=== PATIENT | male | born 1950 | race African-American/Black ===

== ENCOUNTER 2016-02-22 09:02 | Outpatient (RCR) | payer MEDICARE, MEDICAID | END 2016-03-15 | disposition home or self-care (01) | LOC: WCC 09:02 | DX: L97.823 Non-pressure chronic ulcer of other part of left lower leg with necrosis of muscle (principal); L97.822 Non-pressure chronic ulcer of other part of left lower leg with fat layer exposed; L97.322 Non-pressure chronic ulcer of left ankle with fat layer exposed; I10 Essential (primary) hypertension; I87.2 Venous insufficiency (chronic) (peripheral); I25.10 Atherosclerotic heart disease of native coronary artery without angina pectoris | CPT/HCPCS: 11042; 15271; 29580; Q4133 ==

== ENCOUNTER 2016-03-21 09:00 | Outpatient (RCR) | payer MEDICARE, MEDICAID | END 2016-04-12 | disposition home or self-care (01) | LOC: WCC 09:00 | DX: L97.823 Non-pressure chronic ulcer of other part of left lower leg with necrosis of muscle (principal); L97.822 Non-pressure chronic ulcer of other part of left lower leg with fat layer exposed; L97.322 Non-pressure chronic ulcer of left ankle with fat layer exposed; I10 Essential (primary) hypertension; Z95.0 Presence of cardiac pacemaker; I51.9 Heart disease, unspecified; Z79.82 Long term (current) use of aspirin | CPT/HCPCS: 15271; 29580; Q4133 ==

== ENCOUNTER 2016-04-18 09:30 | Outpatient (RCR) | payer MEDICARE, MEDICAID | END 2016-05-13 | disposition home or self-care (01) | LOC: WCC 09:30 | DX: L97.823 Non-pressure chronic ulcer of other part of left lower leg with necrosis of muscle (principal); L97.822 Non-pressure chronic ulcer of other part of left lower leg with fat layer exposed; L97.322 Non-pressure chronic ulcer of left ankle with fat layer exposed; I10 Essential (primary) hypertension; I87.2 Venous insufficiency (chronic) (peripheral); I51.9 Heart disease, unspecified; Z79.1 Long term (current) use of non-steroidal anti-inflammatories (NSAID) | CPT/HCPCS: 11042; 11043; 11046; 15271; 29580; C5271; Q4124; Q4132 ==

== ENCOUNTER 2016-05-18 15:00 | Outpatient (RCR) | payer MEDICARE, MEDICAID | END 2016-06-12 | disposition home or self-care (01) | LOC: WCC 15:00 | DX: L97.823 Non-pressure chronic ulcer of other part of left lower leg with necrosis of muscle (principal); L97.822 Non-pressure chronic ulcer of other part of left lower leg with fat layer exposed; L97.322 Non-pressure chronic ulcer of left ankle with fat layer exposed; I10 Essential (primary) hypertension; I87.2 Venous insufficiency (chronic) (peripheral); I51.9 Heart disease, unspecified | CPT/HCPCS: 11042; 11043; 11046; 29580; 87070; 87181; 87205; C5271; C5272; Q4124 ==

== ENCOUNTER 2016-06-13 10:08 | Outpatient (RCR) | payer MEDICARE, MEDICAID ==
[~2016-06-13] VITALS: Ht 193 cm; Wt 106.6 kg
[2016-06-24] MEDS ORDERED: Lidocaine HCl 2% Jelly 5ml Tube TOPIC ONE (16:00)
== END 2016-07-13 | disposition home or self-care (01) ==
LOC: WCC 10:08
DX: L97.823 Non-pressure chronic ulcer of other part of left lower leg with necrosis of muscle (principal); L97.822 Non-pressure chronic ulcer of other part of left lower leg with fat layer exposed; L97.322 Non-pressure chronic ulcer of left ankle with fat layer exposed; I10 Essential (primary) hypertension; I51.9 Heart disease, unspecified; Z95.0 Presence of cardiac pacemaker
CPT/HCPCS: 11042; 11043; 11045; 11046; 15271; 15272; 29580; Q4106; Q4101

== ENCOUNTER 2016-07-18 09:00 | Outpatient (RCR) | payer MEDICARE, MEDICAID ==
[~2016-07-18] VITALS: Ht 193 cm; Wt 106.6 kg
[2016-07-20] MEDS ORDERED: Lidocaine HCl 2% Jelly 5ml Tube TOPIC ONE ×2 (12:35)
== END 2016-08-12 | disposition home or self-care (01) ==
LOC: WCC 09:00
DX: L97.823 Non-pressure chronic ulcer of other part of left lower leg with necrosis of muscle (principal); L97.822 Non-pressure chronic ulcer of other part of left lower leg with fat layer exposed; L97.322 Non-pressure chronic ulcer of left ankle with fat layer exposed; I11.9 Hypertensive heart disease without heart failure; Z95.0 Presence of cardiac pacemaker
CPT/HCPCS: 11042; 11043; 11045; 11046; 29580

== ENCOUNTER → 2016-08-05 | Outpatient (CLI) | payer MEDICAID, MEDICARE ==
--- NOTE | 2016-08-05 16:44 | Diagnostic Imaging Report ---
Indication: COUGH Technique: 2 views of the chest Comparison: 06/12/2015 Findings: The heart is mildly enlarged. There is a left chest AICD, which has placed the previously present pacemaker. There is an unusually positioned coronary sinus lead, which is actually anterior to the right ventricle. The lungs and pleural space are clear. Aorta is tortuous. There are degenerative changes of the thoracic spine Impression: No acute process Cardiomegaly AICD, as described
== END | disposition home or self-care (01) ==
LOC: RAD 11:09
DX: R05 Cough (principal); I51.7 Cardiomegaly; Z95.810 Presence of automatic (implantable) cardiac defibrillator; Q25.46 Tortuous aortic arch
CPT/HCPCS: 71020

== ENCOUNTER 2016-08-31 14:21 | Outpatient (RCR) | payer MEDICARE, MEDICAID | END 2016-09-12 | disposition home or self-care (01) | LOC: WCC 14:21 | DX: L97.823 Non-pressure chronic ulcer of other part of left lower leg with necrosis of muscle (principal); L97.822 Non-pressure chronic ulcer of other part of left lower leg with fat layer exposed; L97.322 Non-pressure chronic ulcer of left ankle with fat layer exposed; I10 Essential (primary) hypertension; I51.9 Heart disease, unspecified | CPT/HCPCS: 11042; 11043; 11045; 11046; 29580 ==

== ENCOUNTER 2016-09-14 13:08 | Outpatient (RCR) | payer MEDICARE, MEDICAID | END 2016-10-13 | disposition home or self-care (01) | LOC: WCC 13:08 | DX: L97.823 Non-pressure chronic ulcer of other part of left lower leg with necrosis of muscle (principal); L97.822 Non-pressure chronic ulcer of other part of left lower leg with fat layer exposed; L97.322 Non-pressure chronic ulcer of left ankle with fat layer exposed; I11.9 Hypertensive heart disease without heart failure; Z79.1 Long term (current) use of non-steroidal anti-inflammatories (NSAID) | CPT/HCPCS: 11042; 11043; 11045; 15271; 29580; Q4106; Q4101 ==

== ENCOUNTER 2016-10-24 09:30 | Outpatient (RCR) | payer MEDICARE, MEDICAID | END 2016-11-12 | disposition home or self-care (01) | LOC: WCC 09:30 | DX: L97.823 Non-pressure chronic ulcer of other part of left lower leg with necrosis of muscle (principal); L97.822 Non-pressure chronic ulcer of other part of left lower leg with fat layer exposed; L97.322 Non-pressure chronic ulcer of left ankle with fat layer exposed; I11.9 Hypertensive heart disease without heart failure; Z79.1 Long term (current) use of non-steroidal anti-inflammatories (NSAID) | CPT/HCPCS: 11042; 11045; 15271; 29580; Q4106; Q4101 ==

== ENCOUNTER 2016-11-14 09:00 | Outpatient (RCR) | payer MEDICARE, OTHER ==
[~2016-11-14] VITALS: Ht 193 cm; Wt 106.6 kg
[2016-11-18] MEDS ORDERED: Lidocaine HCl 2% Jelly 5ml Tube TOPIC ONE (12:00)
== END 2016-12-13 | disposition home or self-care (01) ==
LOC: WCC 09:00
DX: L97.823 Non-pressure chronic ulcer of other part of left lower leg with necrosis of muscle (principal); L97.822 Non-pressure chronic ulcer of other part of left lower leg with fat layer exposed; L97.322 Non-pressure chronic ulcer of left ankle with fat layer exposed; I11.9 Hypertensive heart disease without heart failure
CPT/HCPCS: 15271; 29580; Q4106; Q4133; Q4101

== ENCOUNTER 2016-12-26 09:00 | Outpatient (RCR) | payer MEDICARE, OTHER | END 2017-01-12 | disposition home or self-care (01) | LOC: WCC 09:00 | DX: L97.823 Non-pressure chronic ulcer of other part of left lower leg with necrosis of muscle (principal); L97.822 Non-pressure chronic ulcer of other part of left lower leg with fat layer exposed; L97.322 Non-pressure chronic ulcer of left ankle with fat layer exposed; I11.9 Hypertensive heart disease without heart failure; Z95.0 Presence of cardiac pacemaker | CPT/HCPCS: 11042; 11043; 15271; 29580; Q4133 ==

== ENCOUNTER 2017-01-16 09:00 | Outpatient (RCR) | payer MEDICARE, OTHER ==
[~2017-01-16] VITALS: Ht 193 cm; Wt 106.6 kg
== END 2017-02-12 | disposition home or self-care (01) ==
LOC: WCC 09:00
DX: L97.823 Non-pressure chronic ulcer of other part of left lower leg with necrosis of muscle (principal); L97.822 Non-pressure chronic ulcer of other part of left lower leg with fat layer exposed; L97.322 Non-pressure chronic ulcer of left ankle with fat layer exposed; I11.9 Hypertensive heart disease without heart failure
CPT/HCPCS: 11042; 11043; 15271; 29580; Q4133

== ENCOUNTER 2017-02-20 09:07 | Outpatient (RCR) | payer MEDICARE, OTHER ==
[~2017-02-20] VITALS: Ht 193 cm; Wt 106.6 kg
[2017-02-28] MEDS ORDERED: Lidocaine 4% Top Soln 50ml TOPIC ONE (09:15)
== END 2017-03-15 | disposition home or self-care (01) ==
LOC: WCC 09:07
DX: L97.823 Non-pressure chronic ulcer of other part of left lower leg with necrosis of muscle (principal); L97.822 Non-pressure chronic ulcer of other part of left lower leg with fat layer exposed; L97.322 Non-pressure chronic ulcer of left ankle with fat layer exposed; I11.0 Hypertensive heart disease with heart failure; Z95.0 Presence of cardiac pacemaker
CPT/HCPCS: 11042; 11043; 11046; 15271; 29580; Q4133

== ENCOUNTER 2017-03-20 09:23 | Outpatient (RCR) | payer MEDICARE, OTHER | END 2017-04-12 | disposition home or self-care (01) | LOC: WCC 09:23 | DX: L97.823 Non-pressure chronic ulcer of other part of left lower leg with necrosis of muscle (principal); L97.822 Non-pressure chronic ulcer of other part of left lower leg with fat layer exposed; L97.322 Non-pressure chronic ulcer of left ankle with fat layer exposed; Z95.0 Presence of cardiac pacemaker; I11.9 Hypertensive heart disease without heart failure | CPT/HCPCS: 11042; 11043; 11046; 15271; 29580; Q4133 ==

== ENCOUNTER 2017-04-17 08:57 | Outpatient (RCR) | payer MEDICARE, OTHER ==
[~2017-04-17] VITALS: Ht 193 cm; Wt 106.6 kg
[2017-05-01] MEDS ORDERED: NORCO 5-325 TA1 EACH ORAL (12:48)
[2017-05-01] MEDS ORDERED: SPIRONOLACTONE25 MG ORAL (12:49)
[2017-05-01] MEDS ORDERED: COREG6.25 MG ORAL (12:50)
[2017-05-01] MEDS ORDERED: ISOSORBIDE MONO30 M1 PO (12:50)
[2017-05-01] MEDS ORDERED: ATORVASTATIN CA80 MG ORAL (12:51)
[2017-05-01] MEDS ORDERED: TRADJENTA5 MG PO (12:52)
[2017-05-01] MEDS ORDERED: ZETIA10 MG ORAL (12:54)
[2017-05-01] MEDS ORDERED: HYDRALAZINE HCL25 M1 ORAL (12:57)
[2017-05-01] MEDS ORDERED: WELCHOL3.75 GM ORAL (12:57)
== END 2017-05-13 | disposition home or self-care (01) ==
LOC: WCC 08:57
DX: L97.322 Non-pressure chronic ulcer of left ankle with fat layer exposed (principal); L97.822 Non-pressure chronic ulcer of other part of left lower leg with fat layer exposed; L97.823 Non-pressure chronic ulcer of other part of left lower leg with necrosis of muscle; I11.9 Hypertensive heart disease without heart failure; Z95.0 Presence of cardiac pacemaker
CPT/HCPCS: 11042; 11043; 29580; G0463

== ENCOUNTER 2017-05-01 07:04 | Inpatient (IN) | payer MEDICARE, OTHER ==
[~2017-05-01] VITALS: Ht 193 cm; Wt 106.6 kg
[2017-05-01] VITALS (10 sets, daily range): BP systolic 129–140; BP diastolic 75–94
[2017-05-01] MEDS ORDERED: Propofol 200mg/20ml IV ONE (08:00)
[2017-05-01] MEDS ORDERED: NS Irrig 1000ml ONE ×2 (08:00)
[2017-05-01] MEDS ORDERED: Sterile Water Irrig 1000ml IRRIG ONE (08:00)
[2017-05-01] MEDS ORDERED: Dexamethasone 4mg/ml vial ONE (08:00)
[2017-05-01] MEDS ORDERED: Midazolam 2mg/2ml Inj ONE (08:00)
[2017-05-01] MEDS ORDERED: fentaNYL 100 mcg/2 mL IV ONE (08:00)
[2017-05-01] MEDS ORDERED: [UNRECOGNIZED DRUG - OTHER] ONE (08:00)
[2017-05-01] MEDS ORDERED: Ketorolac 30mg Inj ONE (08:00)
[2017-05-01] MEDS ORDERED: NORCO 5-325 TA1 EACH ORAL (12:48)
[2017-05-01] MEDS ORDERED: SPIRONOLACTONE25 MG ORAL (12:49)
[2017-05-01] MEDS ORDERED: ISOSORBIDE MONO30 M1 PO (12:50)
[2017-05-01] MEDS ORDERED: COREG6.25 MG ORAL (12:50)
[2017-05-01] MEDS ORDERED: ATORVASTATIN CA80 MG ORAL (12:51)
[2017-05-01] MEDS ORDERED: TRADJENTA5 MG PO (12:52)
[2017-05-01] MEDS ORDERED: ZETIA10 MG ORAL (12:54)
[2017-05-01] MEDS ORDERED: WELCHOL3.75 GM ORAL (12:57)
[2017-05-01] MEDS ORDERED: HYDRALAZINE HCL25 M1 ORAL (12:57)
[2017-05-01] MEDS ORDERED: Muri-Lube ONE (12:58)
[2017-05-01] MEDS ORDERED: Bacitracin 50000 Units Vial ONE (12:58)
[2017-05-01] MEDS ORDERED: Lidocaine 1% 10mg/ml/Epi 0.005mg/ml 30ml vial INJ ONE (12:59)
--- NOTE | 2017-05-01 13:42 | Pre-Procedure Note/Attestation ---
Pre-Procedure Note/Attestation Complete Prior to Procedure Planned Procedure: left Procedure Narrative: Surgical debridement of LLE wounds in preparation for STSG. STSG to LLE wounds and placement of wound vac. 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 I attest that, if there was a reasonable possibility of needing a blood transfusion, the patient (or the patient's legal sales representative consultant) was given the [place] [facility] standardized written summary, pursuant to the [place] Blood Safety Act ([place] Health and Safety Code # 1645, as amended). I attest that I re-evaluated the patient just prior to the surgery and that there has been no change in the patient's H&P, except as documented below: CORIE WALKER May 01, 2017 13:42
[2017-05-01] MEDS ORDERED: EPINEPHrine 1mg/1ml Amp ONE (14:24)
[2017-05-01] MEDS ORDERED: HYDROcodone/Acetamin 7.5/325 tab ORAL PRN (16:00)
--- NOTE | 2017-05-01 16:06 | Brief Operative Note ---
Immediate Post Operative Note Operative Note Pre-op Diagnosis: Chronic non healing left lower extremity ulcers Procedure: Surgical debridement of LLE ulcers in preparation for placement of STSG graft. Application of STSG and wound vac to LLE. Post-op Diagnosis: same as pre-op Surgeon: Martha Anesthesiologist: Vito Anesthesia: general Specimen: yes Complications: none Condition: stable Fluids: IVF Estimated Blood Loss: none Drains: wound vac Implant(s) used?: No CORIE WALKER May 01, 2017 16:06
[2017-05-01] MEDS ORDERED: Milk of Magnesia 30ml Ud ORAL PRN (18:00)
[2017-05-01] MEDS ORDERED: Zolpidem 5mg tab ORAL PRN (18:00)
--- NOTE | 2017-05-01 19:57 | History & Physical ---
History and Physical History & Physicial 66 year old pleasant male with significant cardiac issues and history of pacemaker and cardiomyopathy. Patient underwent plastics intervention and wound vac. Patient is well known to me and has been controlled from a cardiac standpoint. Patient currently with some pain. he is able to ambulate at baseline and has had chronic nonhealing wounds in the legs for some time. patient currently in bed without distress. care reviewed and discussed with surgery with plan for wound vac on discharge. PMH cardiomyopathy Asthma hypertension chronic nonhealing wounds pacemaker prior surgical debridements diabetes elevated cholesterol MEDS and ALLERGIES see attached Social nonsmoker nondrinker, retired, disabled ROS as above Family history NC Physical exam WDWN NAD clear breath sounds bilaterally without rhonchi or wheeze S1S2RR without RG; systolic murmur; pacemaker NABS nontender no HSM no CCE wound vac in place nonfocal IMPRESSION Chronic non healing left lower extremity ulcers Surgical debridement of LLE ulcers in preparation for placement of STSG graft. Application of STSG and wound vac to LLE pacemaker cardiomyopathy diabetes hypertension PLAN wound vac wound care maintain meds stabilize dc to home with home health and wound care impression, plan, and exam edited and reviewed in detail care discussed with RN. KARLEY LEONARD May 01, 2017 19:57
[2017-05-01] MEDS: Carvedilol 6.25mg Tab ORAL SCH (20:46)
[2017-05-01] MEDS: Pantoprazole Inj IVP SCH (20:46)
[2017-05-01] MEDS: HydrALAZINE 25mg tab ORAL SCH (20:46)
[2017-05-01] MEDS: Atorvastatin 80mg tab ORAL SCH (20:46)
[2017-05-01] MEDS: NovoLOG Insulin Flexpen SUBQ SCH (20:53)
[2017-05-02] VITALS (7 sets, daily range): BP systolic 123–150; BP diastolic 65–89
--- NOTE | 2017-05-02 01:00 | Operative Note - Dictated ---
DATE OF OPERATION: 05/01/2017 SURGEON: Rowdy Thomas M.D. ANESTHESIOLOGIST: Sarbjit Padron M.D. PREOPERATIVE DIAGNOSIS: Chronic nonhealing wounds of the left anterior lower extremity and left medial lower extremity. POSTOPERATIVE DIAGNOSIS: Chronic nonhealing wounds of the left anterior lower extremity and left medial lower extremity. OPERATION: Surgical debridement of anterior medial left lower extremity ulcers in preparation for split-thickness skin graft, application of a split-thickness skin graft to left lower extremity ulcers, and application of wound VAC and negative pressure dressing. ANESTHESIA: General endotracheal anesthesia. OPERATIVE INDICATIONS: This is a 66-year-old male, who presented with the above named issues. He had failed to heal with nonsurgical multimodality wound care and had normal arterial Doppler and venous Doppler studies. Decision was made to take him to the operating room for attempt at healing the wounds with split thickness skin grafts. Once he was medically cleared, he was scheduled for elective surgery. OPERATIVE PROCEDURE: The patient was seen in the preoperative area and the operative plan was again discussed and agreed upon. He was taken back to the operating room and placed on the operating table in supine position. Once general endotracheal anesthesia was induced, his entire left lower extremity was circumferentially prepped and draped in the usual sterile fashion. The wound beds were prepped by doing a sharp debridement with #15 scalpel and this also included excising the skin edges circumferentially to have a fresh edge to the wounds. The periwound skin, which was very dry and keratotic, was also cleaned and then debrided sharply to remove the overlying callus. Once the wound was prepped, pulse irrigation was performed with triple antibiotic solution of gentamicin, Ancef, and bacitracin using a total of 2 liters, 1 liter for each wound and then following this, a dermatome was used to remove a 2 x 3 cm piece of skin in the upper outer left thigh. This was meshed in a 1 to 1-1/2 fashion. 2 mL of straight epinephrine and Ray-Maverick was placed on the donor site for hemostasis. Once the skin was harvested, it is fashioned and placed on the wound beds and secured with a combination of trinh and a 5-0 chromic suture. Following this, Xeroform was placed over the split-thickness skin graft and then, a wound VAC was placed first by placing the adhesive drape around the entire skin graft sites in a picture frame fashion followed by application of a foam with a bridge between the two wounds and then it was turned down to 125 mm of low continuous and there were no leaks. The donor site was dressed with a Xeroform followed by 4 x 4, ABD, and a Tegaderm and the patient was then extubated and taken to the recovery room in stable condition. There were no complications. EBL was minimal. The patient tolerated the procedure well. Rowdy Thomas M.D. DR: NASREEN JOB#: [id number] CC:
[2017-05-02] MEDS: NovoLOG Insulin Flexpen SUBQ SCH ×4 (06:17→19:57)
--- NOTE | 2017-05-02 08:21 | General Progress Note ---
Assessment/Plan Assessment/Plan IMPRESSION Chronic non healing left lower extremity ulcers Surgical debridement of LLE ulcers in preparation for placement of STSG graft. Application of STSG and wound vac to LLE pacemaker cardiomyopathy diabetes hypertension PLAN wound vac as is wound care and surgical follow up maintain meds stabilize dc to home with home health and wound care when cleared check cultures if any impression, plan, and exam edited and reviewed in detail care discussed with RN. Subjective Allergies: Coded Allergies: NO KNOWN DRUG ALLERGIES (Verified Allergy, Unknown, 03/06/15) Subjective care noted overnight events reviewed no distress Objective Last 24 Hour Vital Signs Date Time Temp Pulse Resp B/P (MAP) Pulse Ox O2 Delivery O2 Flow Rate FiO2 05/02/17 04:00 97.5 65 19 123/75 96 Room Air 97.5 05/02/17 00:00 98.1 70 19 133/89 97 Room Air 98.1 05/01/17 20:46 135/94 05/01/17 20:46 72 135/94 05/01/17 20:00 97.3 72 19 135/94 96 Room Air 97.3 05/01/17 17:00 98.0 76 20 131/76 97 Room Air 98.0 05/01/17 16:45 98.5 64 18 140/76 22 Nasal Cannula 3.0 98.5 05/01/17 16:35 62 18 133/77 100 Nasal Cannula 3.0 05/01/17 16:20 60 16 134/79 100 Nasal Cannula 3.0 05/01/17 16:10 65 16 137/81 100 Nasal Cannula 3.0 05/01/17 15:59 64 16 135/75 100 Nasal Cannula 3.0 05/01/17 15:54 68 15 129/75 100 Nasal Cannula 3.0 05/01/17 15:49 98.2 66 13 140/76 100 Nasal Cannula 3.0 98.2 05/01/17 12:43 98.0 66 18 134/80 99 Room Air 98.0 Intake and Output 05/01/17 05/02/17 19:00 07:00 Intake Total 1120 ml 350 ml Output Total 40 ml 450 ml Balance 1080 ml -100 ml Intake Oral 120 ml 350 ml IV Total 1000 ml Output Urine Total 450 ml Estimated Blood Loss 40 ml # Voids 3 1 # Bowel Movements 2 Height (Feet): 6 Height (Inches): 4.00 Weight (Pounds): 235 Objective WDWN NAD clear breath sounds bilaterally without rhonchi or wheeze S1S2RR without RG; systolic murmur; pacemaker NABS nontender no HSM no CCE wound vac in place nonfocal KARLEY LEONARD May 02, 2017 08:21
[2017-05-02] MEDS: HydrALAZINE 25mg tab ORAL SCH ×2 (08:49→18:56)
[2017-05-02] MEDS: Imdur 30mg tab ORAL SCH (08:49)
[2017-05-02] MEDS: Spironolactone 25mg tab ORAL SCH (08:49)
[2017-05-02] MEDS: Pantoprazole Inj IVP SCH ×2 (08:49→19:50)
[2017-05-02] MEDS: Carvedilol 6.25mg Tab ORAL SCH ×2 (08:49→19:48)
[2017-05-02] MEDS: Atorvastatin 80mg tab ORAL SCH (19:50)
[2017-05-03] VITALS (7 sets, daily range): BP systolic 103–136; BP diastolic 64–84
[2017-05-03] MEDS: NovoLOG Insulin Flexpen SUBQ SCH ×4 (06:30→21:00)
--- NOTE | 2017-05-03 06:49 | General Progress Note ---
Assessment/Plan Assessment/Plan IMPRESSION Chronic non healing left lower extremity ulcers Surgical debridement of LLE ulcers in preparation for placement of STSG graft. Application of STSG and wound vac to LLE pacemaker cardiomyopathy diabetes hypertension PLAN wound vac as is until monday wound care and surgical follow up maintain meds stabilize dc to home with home health and wound care 05/05 check cultures if available patient does not want snf impression, plan, and exam edited and reviewed in detail care discussed with RN. Subjective Allergies: Coded Allergies: NO KNOWN DRUG ALLERGIES (Verified Allergy, Unknown, 03/06/15) Subjective care noted overnight events reviewed no distress wound vac in place Objective Last 24 Hour Vital Signs Date Time Temp Pulse Resp B/P (MAP) Pulse Ox O2 Delivery O2 Flow Rate FiO2 05/03/17 04:00 98.6 68 18 120/73 97 98.6 05/03/17 00:00 98.2 73 18 124/64 97 98.2 05/02/17 20:48 97.2 05/02/17 20:00 97.2 68 18 126/65 99 97.2 05/02/17 19:49 96.8 05/02/17 19:48 68 126/65 05/02/17 18:56 123/66 05/02/17 18:48 67 123/66 05/02/17 16:00 96.8 64 18 126/73 97 Room Air 96.8 05/02/17 12:00 98.2 61 19 134/73 98 Room Air 98.2 05/02/17 08:49 150/78 05/02/17 08:49 150/78 05/02/17 08:49 72 150/78 05/02/17 08:00 98.4 72 20 150/78 99 Room Air 98.4 Intake and Output 05/02/17 05/03/17 19:00 07:00 Intake Total 520 ml 250 ml Output Total 450 ml 900 ml Balance 70 ml -650 ml Intake Oral 520 ml 250 ml Output Urine Total 450 ml 900 ml # Voids 3 # Bowel Movements 3 Laboratory Tests 05/02/17 09:05: Hemoglobin A1c 5.9 Height (Feet): 6 Height (Inches): 4.00 Weight (Pounds): 235 Objective WDWN NAD clear breath sounds bilaterally without rhonchi or wheeze S1S2RR without RG; systolic murmur; pacemaker NABS nontender no HSM no CCE wound vac in place and noted drainage nonfocal KARLEY LEONARD May 03, 2017 06:49
[2017-05-03] MEDS: Carvedilol 6.25mg Tab ORAL SCH ×2 (09:41→20:29)
[2017-05-03] MEDS: Spironolactone 25mg tab ORAL SCH (09:41)
[2017-05-03] MEDS: HydrALAZINE 25mg tab ORAL SCH ×2 (09:42→18:05)
[2017-05-03] MEDS: Pantoprazole Inj IVP SCH ×2 (09:42→20:28)
[2017-05-03] MEDS: Imdur 30mg tab ORAL SCH (09:42)
[2017-05-03] MEDS: Atorvastatin 80mg tab ORAL SCH (20:29)
[2017-05-04] VITALS: BP 126/86
[2017-05-04] MEDS: NovoLOG Insulin Flexpen SUBQ SCH ×4 (06:30→20:33)
[2017-05-04 08:00] VITALS: BP 134/84
[2017-05-04] MEDS: HydrALAZINE 25mg tab ORAL SCH ×2 (10:02→17:14)
[2017-05-04] MEDS: Carvedilol 6.25mg Tab ORAL SCH ×2 (10:02→20:32)
[2017-05-04] MEDS: Spironolactone 25mg tab ORAL SCH (10:02)
[2017-05-04] MEDS: Imdur 30mg tab ORAL SCH (10:03)
[2017-05-04] MEDS: Pantoprazole Inj IVP SCH ×2 (10:03→20:32)
[2017-05-04 16:00] VITALS: BP 124/64
--- NOTE | 2017-05-04 17:24 | General Progress Note ---
Assessment/Plan Assessment/Plan IMPRESSION Chronic non healing left lower extremity ulcers Surgical debridement of LLE ulcers in preparation for placement of STSG graft. Application of STSG and wound vac to LLE pacemaker cardiomyopathy diabetes hypertension PLAN wound vac as until monday wound care and surgical follow up maintain meds stabilize dc to home with home health and wound care 05/05 check cultures if available patient does not want snf overall well impression, plan, and exam edited and reviewed in detail care discussed with RN. Subjective Allergies: Coded Allergies: NO KNOWN DRUG ALLERGIES (Verified Allergy, Unknown, 03/06/15) Subjective care noted overnight events reviewed no distress wound vac in place wants to go home tomorrow Objective Last 24 Hour Vital Signs Date Time Temp Pulse Resp B/P (MAP) Pulse Ox O2 Delivery O2 Flow Rate FiO2 05/04/17 17:14 138/82 05/04/17 16:00 98.0 61 20 124/64 99 Room Air 98.0 05/04/17 10:03 134/84 05/04/17 10:02 134/84 05/04/17 10:02 60 134/84 05/04/17 08:00 98.3 60 20 134/84 99 Room Air 98.3 05/04/17 04:00 Room Air 05/04/17 00:00 99.2 68 20 126/86 98 99.2 05/03/17 20:29 97 119/79 05/03/17 20:00 98.0 97 20 119/79 97 98.0 05/03/17 18:05 128/77 05/03/17 18:01 66 128/77 Intake and Output 05/03/17 05/04/17 19:00 07:00 Intake Total 960 ml Output Total 550 ml Balance 410 ml Intake Oral 960 ml Output Urine Total 550 ml # Voids 3 1 # Bowel Movements 3 1 Height (Feet): 6 Height (Inches): 4.00 Weight (Pounds): 235 Objective WDWN NAD clear breath sounds bilaterally without rhonchi or wheeze S1S2RR without RG; systolic murmur; pacemaker NABS nontender no HSM no CCE wound vac in place and noted drainage nonfocal KARLEY LEONARD May 04, 2017 17:24
[2017-05-04 20:00] VITALS: BP 141/76
[2017-05-04] MEDS: Atorvastatin 80mg tab ORAL SCH (20:32)
[2017-05-05] VITALS (7 sets, daily range): BP systolic 116–138; BP diastolic 63–85
[2017-05-05] MEDS: NovoLOG Insulin Flexpen SUBQ SCH ×4 (06:30→21:03)
--- NOTE | 2017-05-05 07:31 | General Progress Note ---
Assessment/Plan Assessment/Plan IMPRESSION Chronic non healing left lower extremity ulcers Surgical debridement of LLE ulcers in preparation for placement of STSG graft. Application of STSG and wound vac to LLE pacemaker cardiomyopathy diabetes hypertension PLAN wound vac to be removed tonight wound care and surgical follow up after discharge maintain meds stabilize dc to home with home health and wound care 05/05 no cultures available overall well and proceed with dc today impression, plan, and exam edited and reviewed in detail care discussed with RN. Subjective Allergies: Coded Allergies: NO KNOWN DRUG ALLERGIES (Verified Allergy, Unknown, 03/06/15) Subjective care noted overnight events reviewed no distress and stable wound vac in place wants to go home today Objective Last 24 Hour Vital Signs Date Time Temp Pulse Resp B/P (MAP) Pulse Ox O2 Delivery O2 Flow Rate FiO2 05/05/17 04:00 97.2 69 20 138/85 97 97.2 05/05/17 00:00 98.1 72 18 135/83 99 98.1 05/04/17 20:32 66 119/58 05/04/17 20:00 98.1 64 20 141/76 99 98.1 05/04/17 17:14 138/82 05/04/17 16:00 98.0 61 20 124/64 99 Room Air 98.0 05/04/17 10:03 134/84 05/04/17 10:02 134/84 05/04/17 10:02 60 134/84 05/04/17 08:00 98.3 60 20 134/84 99 Room Air 98.3 Intake and Output 05/04/17 05/05/17 19:00 07:00 Intake Total 1480 ml Balance 1480 ml Intake Oral 1480 ml # Voids 6 3 # Bowel Movements 2 Height (Feet): 6 Height (Inches): 4.00 Weight (Pounds): 235 Objective WDWN NAD clear breath sounds bilaterally without rhonchi or wheeze S1S2RR without RG; systolic murmur; pacemaker NABS nontender no HSM no CCE wound vac in place and noted drainage nonfocal KARLEY LEONARD May 05, 2017 07:31
[2017-05-05] MEDS: Spironolactone 25mg tab ORAL SCH (10:56)
[2017-05-05] MEDS: Carvedilol 6.25mg Tab ORAL SCH ×2 (10:56→21:01)
[2017-05-05] MEDS: Imdur 30mg tab ORAL SCH (10:56)
[2017-05-05] MEDS: Pantoprazole Inj IVP SCH ×2 (10:57→21:00)
[2017-05-05] MEDS: HydrALAZINE 25mg tab ORAL SCH ×2 (10:58→18:37)
[2017-05-05] MEDS: Atorvastatin 80mg tab ORAL SCH (21:01)
[2017-05-06] VITALS: BP 132/85
[2017-05-06 04:00] VITALS: BP 126/54
[2017-05-06] MEDS: NovoLOG Insulin Flexpen SUBQ SCH ×2 (06:18→11:30)
[2017-05-06 08:00] VITALS: BP 114/60
[2017-05-06] MEDS: Spironolactone 25mg tab ORAL SCH (09:00)
[2017-05-06] MEDS: Pantoprazole Inj IVP SCH (09:00)
[2017-05-06] MEDS: Carvedilol 6.25mg Tab ORAL SCH (09:00)
--- NOTE | 2017-05-06 09:04 | General Progress Note ---
Assessment/Plan Problem List: (1) iNCISION AND DEBRIDEMENT OF LEG LEG (2) Seizure ICD Codes: R56.9 - Unspecified convulsions SNOMED: [id number] Status: stable Assessment/Plan wound follow up dc planning with home health Subjective ROS Limited/Unobtainable: No Constitutional: Reports: malaise, weakness HEENT: Reports: no symptoms Cardiovascular: Reports: no symptoms Respiratory: Reports: no symptoms Gastrointestinal/Abdominal: Reports: no symptoms Genitourinary: Reports: no symptoms Neurologic/Psychiatric: Reports: seizure Endocrine: Reports: no symptoms Hematologic/Lymphatic: Reports: no symptoms Allergies: Coded Allergies: NO KNOWN DRUG ALLERGIES (Verified Allergy, Unknown, 03/06/15) All Systems: reviewed and negative except above Subjective no events. w/o complaints. no pain Objective Last 24 Hour Vital Signs Date Time Temp Pulse Resp B/P (MAP) Pulse Ox O2 Delivery O2 Flow Rate FiO2 05/06/17 08:00 97.7 71 20 114/60 98 Room Air 97.7 05/06/17 04:00 97.1 71 20 126/54 100 97.1 05/06/17 00:00 97.5 72 19 132/85 97 Room Air 97.5 05/05/17 21:01 67 122/74 05/05/17 20:00 97.4 67 18 122/74 97 Room Air 97.4 05/05/17 18:37 116/63 05/05/17 18:00 97.7 72 20 122/72 98 97.7 05/05/17 16:00 97.8 73 18 124/74 98 Room Air 97.8 05/05/17 12:00 97.5 63 20 116/63 97 Room Air 97.5 05/05/17 10:58 138/85 05/05/17 10:56 138/85 05/05/17 10:56 69 138/85 Intake and Output 05/05/17 05/06/17 19:00 07:00 Intake Total 480 ml 200 ml Output Total 450 ml Balance 480 ml -250 ml Intake Oral 480 ml 200 ml Output Urine Total 450 ml # Voids 2 2 # Bowel Movements 2 Height (Feet): 6 Height (Inches): 4.00 Weight (Pounds): 235 General Appearance: WD/WN, alert Neck: supple Cardiovascular: regular rhythm Respiratory/Chest: lungs clear Abdomen: normal bowel sounds, non tender, soft Edema: no edema noted Arm (L), no edema noted Arm (R), no edema noted Leg (L), no edema noted Leg (R), no edema noted Pedal (L), no edema noted Pedal (R), no edema noted Generalized BRIEN WISE May 06, 2017 09:04
[2017-05-06] MEDS: HydrALAZINE 25mg tab ORAL SCH (10:09)
[2017-05-06] MEDS: Imdur 30mg tab ORAL SCH (10:12)
[2017-05-06 12:00] VITALS: BP 132/78
--- NOTE | 2017-05-09 14:49 | Discharge Summary ---
Discharge Summary Hospital Course Date of Admission May 01, 2017 at 11:34 Date of Discharge May 06, 2017 at 15:00 Admitting Diagnosis HPI William Davis is a 66 year old male who was admitted on May 01, 2017 at 11:34 for Lt Leg Wound Hospital Course dc summary #[id number] Discharge Medications Continued Medications: Atorvastatin Calcium* (Lipitor*) 80 Mg Tablet 80 MG ORAL DAILY, TAB (This prescription has been renewed) Carvedilol (Coreg) 6.25 Mg Tablet 6.25 MG ORAL EVERY 12 HOURS, TAB (This prescription has been renewed) Colesevelam Hcl (Welchol) 3.75 Gm Powd.pack 1 PKT ORAL DAILY for 30 Days, PKT 0 Refills (This prescription has been renewed) Ezetimibe (Zetia*) 10 Mg Tablet 10 MG ORAL DAILY, TAB (This prescription has been renewed) Hydralazine Hcl* (Hydralazine Hcl*) 25 Mg Tablet 25 MG ORAL BID, TAB 0 Refills (This prescription has been renewed) Hydrocodone Bit/Acetaminophen 5-325* ([place] 5-325*) 1 Each Tablet 1 TAB ORAL Q6H PRN for For Pain, #10 TAB 0 Refills (This prescription has been renewed) Isosorbide Mononitrate (Isosorbide Mononitrate Er) 30 Mg Tab.er.24h 30 MG PO DAILY, TAB (This prescription has been renewed) Linagliptin (Tradjenta) 5 Mg Tablet 5 MG PO DAILY, TAB (This prescription has been renewed) Spironolactone* (Aldactone*) 25 Mg Tablet 25 MG ORAL DAILY, TAB (This prescription has been renewed) Discharge Condition Upon Discharge: stable Discharge Disposition Patient was discharged to Home () Discharge Instructions Discharge Instructions Special Instructions I have been assigned to complete a D/C Summary on this account. I was not involved in the patient management Suellen Waite NP ([place]) May 09, 2017 14:49
--- NOTE | 2017-05-10 03:15 | Discharge Summary 2 SIG ---
DATE OF ADMISSION: 05/01/2017 DATE OF DISCHARGE: 05/06/2017 REASON FOR ADMISSION: The patient is a 66-year-old male with history of pacemaker, cardiomyopathy, coronary artery disease with stent, diabetes, hypertension, and nonhealing left lower extremity wound was admitted for elective debridement of left lower extremity ulcer in preparation for split-thickness skin graft. HOSPITAL COURSE: The patient was admitted. The patient undergone on 05/01/2017 status post surgical debridement of anterior medial left lower extremity ulcer in preparation for split-thickness skin graft, application of a split-thickness skin graft to left lower extremity ulcer, and application of wound VAC, and negative pressure ulcer. The patient was transferred on the floor. Wound VAC was closely monitored and changed as per policy. Donor site was dressed with Xeroform and was followed up with wound care as per surgery recommendation. Pain management was provided. Pain was controlled. Blood sugar was managed with sliding scale of insulin. Hemoglobin A1c 5.9. Blood pressure was managed with beta-sherry and hydralazine and it remained stable. The patient with known history of cardiomyopathy. Medical management of cardiomyopathy consisted of beta-sherry, hydralazine, isosorbide, and spironolactone. No evidence of congestive heart failure exacerbation while in the hospital. The patient with known history of hyperlipidemia. The patient was continued on Lipitor and Zetia. GI prophylaxis provided. Nutritional support provided. The patient was stable for discharge home with home health services for wound care. FINAL DIAGNOSES: 1. Chronic nonhealing left lower extremity ulcer. 2. Status post surgical debridement of the left lower extremity ulcer in preparation for split-thickness skin graft, application of split-thickness skin graft, and application of wound VAC. 3. Cardiomyopathy. 4. Pacemaker. 5. Diabetes mellitus. 6. Hypertension. DISCHARGE MEDICATIONS: See medication reconciliation list. DISCHARGE INSTRUCTIONS: The patient is discharged home with home health services. Follow up with the plastic surgeon as advised. Follow up with the primary care provider. Hans Ng M.D. I have been assigned to dictate discharge summary on this account and I was not involved in the patient's management. Suellen Waite N.P. (vanchtein) DR: ALFRED JOB#: [id number] CC:
== END 2017-05-06 15:00 | disposition home or self-care (01) | DRG 574 ==
LOC: SDSOVERFLO 11:34 → 4E 17:34
PROC: 0HRLX74 Replacement of Left Lower Leg Skin with Autologous Tissue Substitute, Partial Thickness, External Approach (ICD-10-PCS; principal; 2017-05-01 13:30)
PROC: 0HBLXZZ Excision of Left Lower Leg Skin, External Approach (ICD-10-PCS; principal; 2017-05-01 13:30)
PROC: 0HBJXZZ Excision of Left Upper Leg Skin, External Approach (ICD-10-PCS; principal; 2017-05-01 13:30)
DX: L97.829 Non-pressure chronic ulcer of other part of left lower leg with unspecified severity (principal); I42.9 Cardiomyopathy, unspecified; Z95.0 Presence of cardiac pacemaker; E11.9 Type 2 diabetes mellitus without complications; I10 Essential (primary) hypertension; J45.909 Unspecified asthma, uncomplicated; E78.00 Pure hypercholesterolemia, unspecified
CPT/HCPCS: 36415; 82962; 83036; 87081; 94003; 94150; J1815; J2250; J3490

== ENCOUNTER 2017-05-15 07:54 | Outpatient (RCR) | payer MEDICARE, OTHER ==
[~2017-05-15] VITALS: Ht 193 cm; Wt 106.6 kg
[~2017-05-15 07:54] MED LIST: ATORVASTATIN CA80 MG ORAL; COREG6.25 MG ORAL; HYDRALAZINE HCL25 M1 ORAL; ISOSORBIDE MONO30 M1 PO; NORCO 5-325 TA1 EACH ORAL; SPIRONOLACTONE25 MG ORAL; TRADJENTA5 MG PO; WELCHOL3.75 GM ORAL; ZETIA10 MG ORAL
[2017-05-25] MEDS ORDERED: Lidocaine 4% Top Soln 50ml TOPIC ONE (12:00)
== END 2017-06-12 | disposition home or self-care (01) ==
LOC: WCC 07:54
DX: L97.823 Non-pressure chronic ulcer of other part of left lower leg with necrosis of muscle (principal); L97.822 Non-pressure chronic ulcer of other part of left lower leg with fat layer exposed; L97.322 Non-pressure chronic ulcer of left ankle with fat layer exposed; T86.821 Skin graft (allograft) (autograft) failure; I11.9 Hypertensive heart disease without heart failure
CPT/HCPCS: 11042; 11043; 29580

== ENCOUNTER → 2017-05-18 | Outpatient (CLI) | payer MEDICAID, MEDICARE, OTHER ==
--- NOTE | 2017-05-18 18:13 | Diagnostic Imaging Report ---
Indication: Cellulitis Technique: 26.7 mCi of technetium 99 M-MDP was injected intravenously. A triple phase bone scan was then performed with blood flow, blood pool and delayed planar imaging in the region of interest. Several spot images were also obtained. Comparison: 05/04/2015 Findings: Dynamic/flow images demonstrate diffuse hyperemia of the left lower leg/ankle. Static images demonstrate abnormal uptake in the distal tibia and hindfoot on the left with more focal, intense uptake in the region of the anterior distal tibial shaft. IMPRESSION: Abnormal intense focal uptake in the left distal tibial shaft concerning for osteomyelitis. Uptake is also noted within the bones of the left ankle and hindfoot and osteomyelitis in these regions cannot entirely be excluded. Correlation with radiographs and MRI recommended for more sensitive evaluation. Generalized hyperemia and increased uptake involving the left ankle and foot concerning for cellulitis.
== END | disposition home or self-care (01) ==
LOC: NUM 09:59
DX: E46 Unspecified protein-calorie malnutrition (principal); M86.9 Osteomyelitis, unspecified; S81.802A Unspecified open wound, left lower leg, initial encounter; S81.801A Unspecified open wound, right lower leg, initial encounter; X58.XXXA Exposure to other specified factors, initial encounter; Y93.9 Activity, unspecified; Y92.9 Unspecified place or not applicable
CPT/HCPCS: 36415; 78315; 83036; 84134; 93925; 93970; A4641

== ENCOUNTER → 2017-05-22 | Outpatient (CLI) | payer MEDICARE ==
--- NOTE | 2017-05-22 14:32 | Diagnostic Imaging Report ---
Indication: left ankle pain Comparison: None Findings: 3 views of the left ankle obtained. No acute fracture, malalignment, periostitis, or osteochondral defects are identified. Soft tissues are unremarkable. Impression: No acute findings
--- NOTE | 2017-05-22 14:32 | Diagnostic Imaging Report ---
Indication: Pain Comparison: None Findings: Two views of the left tibia and fibula were obtained. There is some periosteal elevation and thickening in the lower part of the tibia and mid fibula as well. Nature of this is not known. There is some soft tissue swelling present. IMPRESSION: Periosteal reaction involving the shaft of the tibia and fibula nature of which is not known. Findings could be on the basis of old trauma, shinsplints, varicose veins along other possibilities
== END | disposition home or self-care (01) ==
LOC: RAD 10:44
DX: M86.9 Osteomyelitis, unspecified (principal); M25.572 Pain in left ankle and joints of left foot; M79.662 Pain in left lower leg

== ENCOUNTER 2017-06-19 09:03 | Outpatient (RCR) | payer MEDICARE, OTHER | END 2017-07-13 | disposition home or self-care (01) | LOC: WCC 09:03 | DX: L97.823 Non-pressure chronic ulcer of other part of left lower leg with necrosis of muscle (principal); L97.822 Non-pressure chronic ulcer of other part of left lower leg with fat layer exposed; L97.322 Non-pressure chronic ulcer of left ankle with fat layer exposed; T86.821 Skin graft (allograft) (autograft) failure; I11.9 Hypertensive heart disease without heart failure; Z79.1 Long term (current) use of non-steroidal anti-inflammatories (NSAID) | CPT/HCPCS: 11042; 11043; 29580 ==

== ENCOUNTER 2017-07-17 09:18 | Outpatient (RCR) | payer MEDICARE, OTHER ==
[~2017-07-17] VITALS: Ht 193 cm; Wt 106.6 kg
== END 2017-08-12 | disposition home or self-care (01) ==
LOC: WCC 09:18
DX: T86.821 Skin graft (allograft) (autograft) failure (principal); L97.823 Non-pressure chronic ulcer of other part of left lower leg with necrosis of muscle; L97.822 Non-pressure chronic ulcer of other part of left lower leg with fat layer exposed; L97.322 Non-pressure chronic ulcer of left ankle with fat layer exposed; L97.321 Non-pressure chronic ulcer of left ankle limited to breakdown of skin; I11.9 Hypertensive heart disease without heart failure; I10 Essential (primary) hypertension
CPT/HCPCS: 11042; 11043; 29580

== ENCOUNTER 2017-08-14 08:03 | Outpatient (RCR) | payer MEDICARE, OTHER | END 2017-09-12 | disposition home or self-care (01) | LOC: WCC 08:03 | DX: L97.823 Non-pressure chronic ulcer of other part of left lower leg with necrosis of muscle (principal); L97.822 Non-pressure chronic ulcer of other part of left lower leg with fat layer exposed; L97.322 Non-pressure chronic ulcer of left ankle with fat layer exposed; L97.321 Non-pressure chronic ulcer of left ankle limited to breakdown of skin; T86.821 Skin graft (allograft) (autograft) failure; Z95.0 Presence of cardiac pacemaker; I11.9 Hypertensive heart disease without heart failure | CPT/HCPCS: 11042; 11043; 15271; 29580; Q4133 ==

== ENCOUNTER 2017-09-13 09:00 | Outpatient (RCR) | payer MEDICARE, OTHER | END 2017-10-13 | disposition home or self-care (01) | LOC: WCC 09:00 | DX: L97.823 Non-pressure chronic ulcer of other part of left lower leg with necrosis of muscle (principal); L97.822 Non-pressure chronic ulcer of other part of left lower leg with fat layer exposed; L97.322 Non-pressure chronic ulcer of left ankle with fat layer exposed; L97.321 Non-pressure chronic ulcer of left ankle limited to breakdown of skin; T86.821 Skin graft (allograft) (autograft) failure; Z95.0 Presence of cardiac pacemaker; I11.9 Hypertensive heart disease without heart failure | CPT/HCPCS: 11042; 11043; 15271; 29580; 29581; Q4133 ==

== ENCOUNTER 2017-10-30 09:10 | Outpatient (RCR) | payer MEDICARE, OTHER ==
[~2017-10-30] VITALS: Ht 193 cm; Wt 106.6 kg
== END 2017-11-12 | disposition home or self-care (01) ==
LOC: WCC 09:10
DX: L97.823 Non-pressure chronic ulcer of other part of left lower leg with necrosis of muscle (principal); L97.822 Non-pressure chronic ulcer of other part of left lower leg with fat layer exposed; L97.322 Non-pressure chronic ulcer of left ankle with fat layer exposed; L97.321 Non-pressure chronic ulcer of left ankle limited to breakdown of skin; T86.821 Skin graft (allograft) (autograft) failure; I11.9 Hypertensive heart disease without heart failure; Z95.0 Presence of cardiac pacemaker
CPT/HCPCS: 11042; 15271; Q4133

== ENCOUNTER 2017-11-13 09:10 | Outpatient (RCR) | payer MEDICARE, OTHER ==
[~2017-11-13] VITALS: Ht 193 cm; Wt 106.6 kg
== END 2017-12-13 | disposition home or self-care (01) ==
LOC: WCC 09:10
DX: L97.823 Non-pressure chronic ulcer of other part of left lower leg with necrosis of muscle (principal); L97.822 Non-pressure chronic ulcer of other part of left lower leg with fat layer exposed; L97.322 Non-pressure chronic ulcer of left ankle with fat layer exposed; L97.321 Non-pressure chronic ulcer of left ankle limited to breakdown of skin; T86.821 Skin graft (allograft) (autograft) failure; L03.116 Cellulitis of left lower limb; L98.492 Non-pressure chronic ulcer of skin of other sites with fat layer exposed; I11.9 Hypertensive heart disease without heart failure; I10 Essential (primary) hypertension; Z95.0 Presence of cardiac pacemaker
CPT/HCPCS: 11042; 11043; 11045; 15271; 29580; 87070; 87181; 87205; Q4131

== ENCOUNTER 2017-12-18 09:08 | Outpatient (RCR) | payer MEDICARE, OTHER | END 2018-01-12 | disposition home or self-care (01) | LOC: WCC 09:08 | DX: L97.823 Non-pressure chronic ulcer of other part of left lower leg with necrosis of muscle (principal); L97.822 Non-pressure chronic ulcer of other part of left lower leg with fat layer exposed; L97.322 Non-pressure chronic ulcer of left ankle with fat layer exposed; L97.321 Non-pressure chronic ulcer of left ankle limited to breakdown of skin; T86.821 Skin graft (allograft) (autograft) failure; L98.492 Non-pressure chronic ulcer of skin of other sites with fat layer exposed; L03.116 Cellulitis of left lower limb; I51.9 Heart disease, unspecified; I11.9 Hypertensive heart disease without heart failure | CPT/HCPCS: 11042; 11043; 29580 ==

== ENCOUNTER 2018-01-15 09:09 | Outpatient (RCR) | payer MEDICARE, OTHER ==
[~2018-01-15] VITALS: Ht 193 cm; Wt 106.6 kg
[2018-01-22] MEDS ORDERED: Lidocaine HCl 2% Jelly 6ml Tube TOPIC ONE (16:30)
== END 2018-02-12 | disposition home or self-care (01) ==
LOC: WCC 09:09
DX: L97.823 Non-pressure chronic ulcer of other part of left lower leg with necrosis of muscle (principal); L97.822 Non-pressure chronic ulcer of other part of left lower leg with fat layer exposed; L97.322 Non-pressure chronic ulcer of left ankle with fat layer exposed; L97.321 Non-pressure chronic ulcer of left ankle limited to breakdown of skin; T86.821 Skin graft (allograft) (autograft) failure; L98.492 Non-pressure chronic ulcer of skin of other sites with fat layer exposed; L03.116 Cellulitis of left lower limb; I10 Essential (primary) hypertension; I11.9 Hypertensive heart disease without heart failure
CPT/HCPCS: 11042; 11045; 29580

== ENCOUNTER 2018-02-19 08:54 | Outpatient (RCR) | payer MEDICARE, OTHER ==
[~2018-02-19] VITALS: Ht 193 cm; Wt 106.6 kg
== END 2018-03-15 | disposition home or self-care (01) ==
LOC: WCC 08:54
DX: L97.823 Non-pressure chronic ulcer of other part of left lower leg with necrosis of muscle (principal); L97.822 Non-pressure chronic ulcer of other part of left lower leg with fat layer exposed; L97.322 Non-pressure chronic ulcer of left ankle with fat layer exposed; L97.321 Non-pressure chronic ulcer of left ankle limited to breakdown of skin; T86.821 Skin graft (allograft) (autograft) failure; L98.492 Non-pressure chronic ulcer of skin of other sites with fat layer exposed; L03.116 Cellulitis of left lower limb; I11.9 Hypertensive heart disease without heart failure; Z95.0 Presence of cardiac pacemaker
CPT/HCPCS: 11043; 15002; 15271; 29580; Q4133

== ENCOUNTER 2018-03-16 15:32 | Outpatient (RCR) | payer MEDICARE, OTHER ==
[~2018-03-16] VITALS: Ht 193 cm; Wt 106.6 kg
== END 2018-04-12 | disposition home or self-care (01) ==
LOC: WCC 15:32
DX: L97.823 Non-pressure chronic ulcer of other part of left lower leg with necrosis of muscle (principal); L97.822 Non-pressure chronic ulcer of other part of left lower leg with fat layer exposed; L97.322 Non-pressure chronic ulcer of left ankle with fat layer exposed; L97.321 Non-pressure chronic ulcer of left ankle limited to breakdown of skin; T86.821 Skin graft (allograft) (autograft) failure; L98.492 Non-pressure chronic ulcer of skin of other sites with fat layer exposed; L03.116 Cellulitis of left lower limb; Z95.0 Presence of cardiac pacemaker; I10 Essential (primary) hypertension
CPT/HCPCS: 11042; 11043; 15271; 29580; 29581; Q4133

== ENCOUNTER 2018-04-16 09:01 | Outpatient (RCR) | payer MEDICARE, OTHER | END 2018-05-13 | disposition home or self-care (01) | LOC: WCC 09:01 | DX: L97.823 Non-pressure chronic ulcer of other part of left lower leg with necrosis of muscle (principal); L97.822 Non-pressure chronic ulcer of other part of left lower leg with fat layer exposed; L97.322 Non-pressure chronic ulcer of left ankle with fat layer exposed; L97.321 Non-pressure chronic ulcer of left ankle limited to breakdown of skin; T86.821 Skin graft (allograft) (autograft) failure; L98.492 Non-pressure chronic ulcer of skin of other sites with fat layer exposed; L03.116 Cellulitis of left lower limb; I10 Essential (primary) hypertension; Z95.0 Presence of cardiac pacemaker; I11.9 Hypertensive heart disease without heart failure | CPT/HCPCS: 11042; 15271; Q4133 ==

== ENCOUNTER 2018-05-14 08:20 | Outpatient (RCR) | payer MEDICARE, OTHER | END 2018-06-12 | disposition home or self-care (01) | LOC: WCC 08:20 | DX: L97.823 Non-pressure chronic ulcer of other part of left lower leg with necrosis of muscle (principal); L97.822 Non-pressure chronic ulcer of other part of left lower leg with fat layer exposed; L97.322 Non-pressure chronic ulcer of left ankle with fat layer exposed; L97.321 Non-pressure chronic ulcer of left ankle limited to breakdown of skin; T86.821 Skin graft (allograft) (autograft) failure; L98.492 Non-pressure chronic ulcer of skin of other sites with fat layer exposed; L03.116 Cellulitis of left lower limb | CPT/HCPCS: 11042; 11043; 15271; 29580; 87070; 87181; 87205; Q4133 ==

== ENCOUNTER 2018-06-18 09:00 | Outpatient (RCR) | payer MEDICARE, OTHER ==
[~2018-06-18] VITALS: Ht 193 cm; Wt 106.6 kg
== END 2018-07-13 | disposition home or self-care (01) ==
LOC: WCC 09:00
DX: L97.823 Non-pressure chronic ulcer of other part of left lower leg with necrosis of muscle (principal); L97.822 Non-pressure chronic ulcer of other part of left lower leg with fat layer exposed; L97.322 Non-pressure chronic ulcer of left ankle with fat layer exposed; L97.321 Non-pressure chronic ulcer of left ankle limited to breakdown of skin; T86.821 Skin graft (allograft) (autograft) failure; L98.492 Non-pressure chronic ulcer of skin of other sites with fat layer exposed; L03.116 Cellulitis of left lower limb; Z95.0 Presence of cardiac pacemaker; I11.9 Hypertensive heart disease without heart failure; Z79.899 Other long term (current) drug therapy
CPT/HCPCS: 11042; 11043; 15271; 29580; Q4133

== ENCOUNTER 2018-07-20 09:00 | Outpatient (RCR) | payer MEDICARE, OTHER ==
[~2018-07-20] VITALS: Ht 182.9 cm; Wt 90.7 kg
== END 2018-08-12 | disposition home or self-care (01) ==
LOC: WCC 09:00
DX: L97.823 Non-pressure chronic ulcer of other part of left lower leg with necrosis of muscle (principal); L97.822 Non-pressure chronic ulcer of other part of left lower leg with fat layer exposed; L97.322 Non-pressure chronic ulcer of left ankle with fat layer exposed; L97.321 Non-pressure chronic ulcer of left ankle limited to breakdown of skin; T86.821 Skin graft (allograft) (autograft) failure; L98.492 Non-pressure chronic ulcer of skin of other sites with fat layer exposed; L03.116 Cellulitis of left lower limb; I11.9 Hypertensive heart disease without heart failure; Z95.0 Presence of cardiac pacemaker; Z79.899 Other long term (current) drug therapy
CPT/HCPCS: 11042; 11043; 15271; 29580; Q4133

== ENCOUNTER 2018-08-13 07:56 | Outpatient (RCR) | payer MEDICARE, OTHER | END 2018-09-12 | disposition home or self-care (01) | LOC: WCC 07:56 | DX: L97.823 Non-pressure chronic ulcer of other part of left lower leg with necrosis of muscle (principal); L97.822 Non-pressure chronic ulcer of other part of left lower leg with fat layer exposed; L97.322 Non-pressure chronic ulcer of left ankle with fat layer exposed; L97.321 Non-pressure chronic ulcer of left ankle limited to breakdown of skin; T86.821 Skin graft (allograft) (autograft) failure; L98.492 Non-pressure chronic ulcer of skin of other sites with fat layer exposed; L03.116 Cellulitis of left lower limb; Z79.899 Other long term (current) drug therapy; I11.9 Hypertensive heart disease without heart failure; I51.9 Heart disease, unspecified; Z95.0 Presence of cardiac pacemaker | CPT/HCPCS: 11043; 15271; 29580; Q4131; Q4133 ==

== ENCOUNTER 2018-09-13 10:17 | Outpatient (RCR) | payer MEDICARE, OTHER ==
[~2018-09-13] VITALS: Ht 193 cm; Wt 106.6 kg
[2018-10-10] MEDS ORDERED: Lidocaine HCl 2% Jelly 6ml Tube TOPIC ONE (12:30)
== END 2018-10-13 | disposition home or self-care (01) ==
LOC: WCC 10:17
DX: L97.823 Non-pressure chronic ulcer of other part of left lower leg with necrosis of muscle (principal); L97.822 Non-pressure chronic ulcer of other part of left lower leg with fat layer exposed; L97.322 Non-pressure chronic ulcer of left ankle with fat layer exposed; L97.321 Non-pressure chronic ulcer of left ankle limited to breakdown of skin; T86.821 Skin graft (allograft) (autograft) failure; L98.492 Non-pressure chronic ulcer of skin of other sites with fat layer exposed; L03.116 Cellulitis of left lower limb; Z95.0 Presence of cardiac pacemaker; I11.9 Hypertensive heart disease without heart failure; I25.10 Atherosclerotic heart disease of native coronary artery without angina pectoris; Z79.899 Other long term (current) drug therapy
CPT/HCPCS: 11042; 15271; 29580; Q4131

== ENCOUNTER 2018-10-16 08:16 | Outpatient (RCR) | payer MEDICARE, OTHER ==
[~2018-10-16] VITALS: Ht 193 cm; Wt 106.6 kg
[2018-11-06] MEDS ORDERED: Lidocaine HCl 2% Jelly 6ml Tube TOPIC ONE (11:45)
== END 2018-11-12 | disposition home or self-care (01) ==
LOC: WCC 08:16
DX: L97.823 Non-pressure chronic ulcer of other part of left lower leg with necrosis of muscle (principal); L97.822 Non-pressure chronic ulcer of other part of left lower leg with fat layer exposed; L97.322 Non-pressure chronic ulcer of left ankle with fat layer exposed; Z79.899 Other long term (current) drug therapy; Z95.0 Presence of cardiac pacemaker; I11.9 Hypertensive heart disease without heart failure; I10 Essential (primary) hypertension
CPT/HCPCS: 11042; 11043; 15271; 29580; Q4133

== ENCOUNTER 2018-11-19 09:21 | Outpatient (RCR) | payer MEDICARE, OTHER | END 2018-12-13 | disposition home or self-care (01) | LOC: WCC 09:21 | DX: L97.823 Non-pressure chronic ulcer of other part of left lower leg with necrosis of muscle (principal); L97.822 Non-pressure chronic ulcer of other part of left lower leg with fat layer exposed; L97.322 Non-pressure chronic ulcer of left ankle with fat layer exposed; I11.9 Hypertensive heart disease without heart failure; Z95.0 Presence of cardiac pacemaker; Z79.899 Other long term (current) drug therapy | CPT/HCPCS: 11043; 29580 ==

== ENCOUNTER 2018-12-17 08:50 | Outpatient (RCR) | payer MEDICARE, OTHER | END 2019-01-12 | disposition home or self-care (01) | LOC: WCC 08:50 | DX: L97.823 Non-pressure chronic ulcer of other part of left lower leg with necrosis of muscle (principal); L97.822 Non-pressure chronic ulcer of other part of left lower leg with fat layer exposed; L97.322 Non-pressure chronic ulcer of left ankle with fat layer exposed; Z95.0 Presence of cardiac pacemaker; I11.9 Hypertensive heart disease without heart failure; Z79.899 Other long term (current) drug therapy | CPT/HCPCS: 11042; 11043; 29580 ==

== ENCOUNTER 2019-01-14 08:38 | Outpatient (RCR) | payer MEDICARE, OTHER ==
[~2019-01-14] VITALS: Ht 193 cm; Wt 106.6 kg
== END 2019-02-12 | disposition home or self-care (01) ==
LOC: WCC 08:38
DX: L97.823 Non-pressure chronic ulcer of other part of left lower leg with necrosis of muscle (principal); L97.822 Non-pressure chronic ulcer of other part of left lower leg with fat layer exposed; L97.322 Non-pressure chronic ulcer of left ankle with fat layer exposed; I11.9 Hypertensive heart disease without heart failure; Z95.0 Presence of cardiac pacemaker
CPT/HCPCS: 11042; 11043; 15002; 29580; 87070; 87181; 87205

== ENCOUNTER 2019-02-14 10:02 | Outpatient (RCR) | payer MEDICARE, OTHER | END 2019-03-15 | disposition home or self-care (01) | LOC: WCC 10:02 | DX: L97.823 Non-pressure chronic ulcer of other part of left lower leg with necrosis of muscle (principal); L97.822 Non-pressure chronic ulcer of other part of left lower leg with fat layer exposed; L97.322 Non-pressure chronic ulcer of left ankle with fat layer exposed; I11.9 Hypertensive heart disease without heart failure; Z79.899 Other long term (current) drug therapy | CPT/HCPCS: 11043; 29580 ==